=== PATIENT | female | born 1955 | race Caucasian/White ===

== ENCOUNTER 2023-03-15 10:45 | Outpatient (AMB) | payer BC, SELFPAY ==
[2023-03-15 11:25] VITALS: BMI 24.7
--- NOTE | 2023-03-15 11:25 | MHC.OFFVIS ---
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 States her left is currently worse. States pain is mainly in her palm, state she has constant throbbing in palm which worsen 2 weeks ago. Also pain in her thumb CMC joint that radiates around her wrist. No injury she can recall. Denies numbness, tingling or locking of any finger. 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 She complains of pain which she feels primarily in her palms. She describes this pain as throbbing and says this has worsened in the last 2 weeks. She also complains of worsening pain at the base of her left thumb, which radiates into her wrist. Her pain is worse with pinching or gripping activities. She enjoys sewing activities, which she finds painful. She denies any falls or known injury. She denies any numbness, tingling, or locking. 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 [employer] All systems reviewed & are unremarkable except as noted in HPI and below Physical Exam Vital Signs: BMI result Body Mass Index 24.7 Const General: cooperative, healthy appearing and no acute distress Orientation/consciousness: patient oriented x3 HEENT Head: Yes normocephalic and Yes atraumatic Eyes EOM: EOMs intact bilaterally Resp Effort & Inspection: normal respiratory effort and able to speak in complete sentences Cardio Jugular venous distension: no JVD Skin General skin exam: turgor normal Rashes: no rashes Neuro General: patient oriented x3 Extrem Other: Evaluation of Left Upper Extremity: The patient is alert, oriented, and in no acute distress Neuro: Median, Ulnar, Radial nerves motor and sensory intact and sensation is normal to the tips of all digits Vascular: Cap refill brisk ROM: She can make a fist and extend all her digits No locking or catching Skin: No lacerations or abrasions. General: No Ecchymosis. No Erythema or evidence of infection. + shoulder sign + CMC grind Most tender over the basal joint No 1st dorsal compartment tenderness No tenderness over the MCP joint No a1 letha tenderness Radiographs: 3 views of her left hand, with attention to the thumb, were taken and viewed by me today in clinic. They show no fractures or dislocations. She has STT & basal joint OA with joint space narrowing, subchondral sclerosis, and osteophyte formation. Psych Appearance: grossly normal Affect: normal affect Attitude: cooperative Office Procedures Fracture Care Details: No fracture, injection Fracture Billing Code: Fracture Billing Code Assessment & Plan Assessment & Plan (1) Arthritis of carpometacarpal (CMC) joint of left thumb: Code(s): M18.12 - Unilateral primary osteoarthritis of first carpometacarpal joint, left hand (2) Osteoarthritis of left wrist: Code(s): M19.032 - Primary osteoarthritis, left wrist Plan Assessment & Plan: 1. Left basal joint osteoarthritis This is her chief complaint and where she is most symptomatic 2. Left STT osteoarthritis Less symptomatic I educated her about these conditions I discussed operative and non-operative treatment options The patient would like to proceed with an injection I recommend activity modification, she should limit or avoid any heavy or repetitive pinching or gripping activities She was fitted for a comfort cool brace to wear with daily activity. She should remove this when at rest. Injection #1 : The risks and benefits of a steroid injection including but not limited to risk of damage to blood vessels, nerve, tendon, infection, skin bleaching, persistent or worsening pain, and failure to improve symptoms were discussed with the patient and they wish to proceed with the steroid injection. Once consent was obtained the skin over the dorsum of the Left basal joint was sterilely prepped. The joint was then injected with a combination of 1 mL of (40 mg/ml} Depo-Medrol and 1% plain Lidocaine. The patient appears to have tolerated the procedure well and with no complications. Anupama had good early relief before leaving clinic today. She knows that they may not have another steroid injection into this joint for least 4 months. She will follow up prn Scribed for Lynnette David MD by Bernardo Jones, medical coding auditor, on 03/15/23 at 11:55 AM, EST. Orders: Orders XR hand LT min 3V Today M79.642 - Pain in left hand Coding Level of Care Code New Pt Level 3 (20085) Diagnoses Arthritis of carpometacarpal (CMC) joint of left thumb M18.12 Osteoarthritis of left wrist M19.032 CPT Codes Fracture Care - Fracture Billing Code: Fracture Billing Code ([id number])
== END 2023-03-15 12:17 | disposition home or self-care (01) ==
PROVIDERS: PCP Internal Medicine; Visit Provider Orthopaedic Surgery
DX: M18.12 Unilateral primary osteoarthritis of first carpometacarpal joint, left hand (principal); M19.032 Primary osteoarthritis, left wrist
CPT/HCPCS: 20600; 99204

== ENCOUNTER 2023-03-15 10:45 | Outpatient (REF) | payer BC, SELFPAY ==
--- NOTE | ~2023-03-15 | XR_ITS ---
EXAMINATION: XR HAND, LEFT CLINICAL INFORMATION: Left hand pain, attention base of thumb COMPARISON: None available. TECHNIQUE: PA, lateral, and oblique views of the left hand. FINDINGS: STT joint space narrowing, sclerosis and subchondral cysts seen mild first carpometacarpal joint. Diffuse mild interphalangeal joint space narrowings. No fracture or dislocation. XR/XR hand LT min 3V IMPRESSION: Degenerative type changes, most pronounced STT joint.
== END 2023-03-15 10:46 | disposition home or self-care (01) ==
LOC: HO.HOSX 10:45
PROVIDERS: PCP Internal Medicine; Visit Provider Orthopaedic Surgery
DX: M18.12 Unilateral primary osteoarthritis of first carpometacarpal joint, left hand (principal); M19.032 Primary osteoarthritis, left wrist
CPT/HCPCS: 20600; 73130; J1020

== ENCOUNTER 2023-12-21 13:13 | Outpatient (AMB) | payer BC, SELFPAY ==
[2023-12-21 13:16] VITALS: BMI 22.7
--- NOTE | 2023-12-21 13:16 | MHC.OFFVIS ---
Vital Signs 12/21/23 13:16 Height 5 ft 2 in Weight 124 lb 6 oz BMI 22.7 Intake Visit Reasons: Inj-Left hand injection-last injection 03/15/23 Intake Note: Anupama 67 yo right hand dominant female who presents today for left hand basal joint injection. Patient reports last injection done 03/15/23 was helpful and would like to repeat it today. Allergies adhesive tape Allergy (Mild, Verified 12/21/23 13:16) rash sulfa Allergy (Mild, Uncoded 12/21/23 13:16) Hives HPI HPI Inj-Left hand injection-last injection 03/15/23: Details: Anupama is a 67 year old right hand dominant woman who returns to discuss her left basal joint arthritis. She is S/P left basal joint injection on 03/15/23. She says this was helpful and she would like to repeat today. She complains of worsening pain at the base of her left thumb, which radiates into her wrist. Her pain is worse with pinching or gripping activities. She enjoys sewing activities, which she finds painful. She says she recently was making stuffed bears, which involves a large amount of grasping and pushing with her thumb, and this caused her a large increase in her pain. 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 She finds some relief from wearing her thumb splint. She would like to discuss alternative treatment options She denies any falls or known injury. She denies any numbness, tingling, or locking. 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 Exam Vital Signs: BMI result Body Mass Index 22.7 Extrem Other: Evaluation of Left Upper Extremity: The patient is alert, oriented, and in no acute distress Neuro: Median, Ulnar, Radial nerves motor and sensory intact and sensation is normal to the tips of all digits Vascular: Cap refill brisk ROM: She can make a fist and extend all her digits No locking or catching + shoulder sign + CMC grind Most tender over the basal joint No 1st dorsal compartment tenderness No tenderness over the MCP joint No a1 letha tenderness Radiographs: 3 views of her left hand, with attention to the thumb, from 03/15/23 were reviewed by me today in clinic. They show no fractures or dislocations. She has STT & basal joint OA with joint space narrowing, subchondral sclerosis, and osteophyte formation. Office Procedures Fracture Care Details: No fracture, injection Fracture Billing Code: Fracture Billing Code Assessment & Plan Assessment & Plan (1) Arthritis of carpometacarpal (CMC) joint of left thumb: Code(s): M18.12 - Unilateral primary osteoarthritis of first carpometacarpal joint, left hand Category: Medical (2) Osteoarthritis of left wrist: Code(s): M19.032 - Primary osteoarthritis, left wrist Category: Medical Plan Assessment & Plan: 1. Left basal joint osteoarthritis, S/p injection Date of injections: 12/21/23, 03/15/23 This is her chief complaint and where she is most symptomatic 2. Left STT osteoarthritis Less symptomatic I educated her about these conditions I discussed operative and non-operative treatment options The patient would like to proceed with an injection I recommend activity modification, she should limit or avoid any heavy or repetitive pinching or gripping activities She was fitted for a comfort cool brace to wear with daily activity. She should remove this when at rest. Injection #1 : The risks and benefits of a steroid injection including but not limited to risk of damage to blood vessels, nerve, tendon, infection, skin bleaching, persistent or worsening pain, and failure to improve symptoms were discussed with the patient and they wish to proceed with the steroid injection. Once consent was obtained the skin over the dorsum of the Left basal joint was sterilely prepped. The joint was then injected with a combination of 1 mL of (40 mg/ml} Depo-Medrol and 1% plain Lidocaine. The patient appears to have tolerated the procedure well and with no complications. Anupama had good early relief before leaving clinic today. She knows that they may not have another steroid injection into this joint for least 4 months. She will follow up prn Scribed for Lynnette David MD by Bernardo Jones, medical case manager, on 12/21/23 at 1:35 PM, EST. Coding Level of Care Code Est Pt Level 3 (43438) Diagnoses Arthritis of carpometacarpal (CMC) joint of left thumb M18.12 Osteoarthritis of left wrist M19.032 CPT Codes Fracture Care - Fracture Billing Code: Fracture Billing Code ([id number])
== END 2023-12-21 13:56 | disposition home or self-care (01) ==
PROVIDERS: PCP Internal Medicine; Visit Provider Orthopaedic Surgery
DX: M18.12 Unilateral primary osteoarthritis of first carpometacarpal joint, left hand (principal); M19.032 Primary osteoarthritis, left wrist
CPT/HCPCS: 20600; 99213

== ENCOUNTER → 2023-12-21 13:13 | Outpatient (BNVA) | payer BC, SELFPAY | PROVIDERS: PCP Internal Medicine; Visit Provider Orthopaedic Surgery | DX: M18.12 Unilateral primary osteoarthritis of first carpometacarpal joint, left hand (principal); M19.032 Primary osteoarthritis, left wrist | CPT/HCPCS: 20600; J1010 ==